=== PATIENT | male | born 1990 | race Two or more races ===

== ENCOUNTER 2017-07-11 16:32 | Emergency (ER) | payer MEDICAID ==
[~2017-07-11] VITALS: Ht 175.3 cm; Wt 90.7 kg
[2017-07-11 16:41] VITALS: BP 150/64
[2017-07-11] MEDS ORDERED: LIDOCAINE 1% HCL (LOCAL ANESTH.) INJ 20ML MDV IN ONE (17:15)
== END 2017-07-11 18:00 | disposition home or self-care (01) ==
LOC: ER 16:41
DX: S61.210A Laceration without foreign body of right index finger without damage to nail, initial encounter (principal); W45.8XXA Other foreign body or object entering through skin, initial encounter; Y93.89 Activity, other specified; Y92.89 Other specified places as the place of occurrence of the external cause; Y99.8 Other external cause status
CPT/HCPCS: 12001; 99283; J2001